=== PATIENT | male | born 1960 | race Caucasian/White ===

== ENCOUNTER 2016-04-13 14:06 | Inpatient (IN) | payer OTHER ==
[~2016-04-13] VITALS: Ht 172.7 cm; Wt 58.0 kg
[~2016-04-13 14:06] MED LIST: ASPIRIN325 MG PO; DAILY MULTIPLE1 EAC1 PO; LIPITOR20 MG PO; NICODERM 7MG PAT1 EA TD; PRILOSEC40 MG PO; SYMBICORT 16010.2 GM INH; ZYRTEC10 MG PO
[2016-04-13 18:24] LABS: URINE BILIRUBIN NEGATIVE (NEGATIVE); URINE BLOOD TRACE (NEGATIVE); URINE GLUCOSE (UA) NORMAL (NORMAL); URINE KETONE NEGATIVE (NEGATIVE); URINE LEUKOCYTE ESTERASE NEGATIVE (NEGATIVE); URINE NITRATE NEGATIVE (NEGATIVE); URINE PROTEIN NEGATIVE (NEGATIVE); UROBILINOGEN NORMAL mg/dL (<1.0)
[2016-04-13 19:02] LABS: URINE BACTERIA TRACE (NONE SEEN); URINE SQUAMOUS EPITHELIAL CELL 0-10 /[HPF] (NONE SEEN); URINE WBC 0-5 /[HPF] (0-3)
[2016-04-14 06:20] LABS: HEMATOCRIT 24.9 % (40-51); MEAN CORPUSCULAR HEMOGLOBIN 29.7 pg (27.0-33.0); MEAN CORPUSCULAR HGB CONC 32.9 g/dL (32.0-36.0); MEAN CORPUSCULAR VOLUME 90.2 fL (79-92); MEAN PLATELET VOLUME 10.4 fl (7.5-11.5); RED BLOOD COUNT 2.76 x10_6/uL (4.6-6.1); RED CELL DISTRIBUTION WIDTH 14.6 % (11.6-14.4); WHITE BLOOD COUNT 5.3 x10_3/uL (4.2-9.1)
[2016-04-14 06:26] LABS: HEMOGLOBIN 8.2 g/dL (13.7-17.5)
[2016-04-14 06:33] LABS: BLOOD UREA NITROGEN 8 mg/dL (7-18); CALCIUM 8.6 mg/dL (8.7-10.7); CARBON DIOXIDE 30 mmol/L (21-32); CREATININE 0.5 mg/dL (0.6-1.3); GLUCOSE,RANDOM 110 mg/dL (70-99); POTASSIUM 3.7 mmol/L (3.5-5.1); SODIUM 144 mmol/L (136-145)
[2016-04-15 06:47] LABS: HEMATOCRIT 23.7 % (40-51); MEAN CORPUSCULAR HGB CONC 32.5 g/dL (32.0-36.0); MEAN CORPUSCULAR VOLUME 92.2 fL (79-92); MEAN PLATELET VOLUME 10.9 fl (7.5-11.5); RED BLOOD COUNT 2.57 x10_6/uL (4.6-6.1); RED CELL DISTRIBUTION WIDTH 14.8 % (11.6-14.4); WHITE BLOOD COUNT 5.5 x10_3/uL (4.2-9.1)
[2016-04-15 06:56] LABS: HEMOGLOBIN 7.7 g/dL (13.7-17.5); MEAN CORPUSCULAR HEMOGLOBIN 29.9 pg (27.0-33.0)
[2016-04-15 06:57] LABS: BLOOD UREA NITROGEN 14 mg/dL (7-18); CALCIUM 8.7 mg/dL (8.7-10.7); CARBON DIOXIDE 29 mmol/L (21-32); GLUCOSE,RANDOM 116 mg/dL (70-99); POTASSIUM 3.7 mmol/L (3.5-5.1); SODIUM 143 mmol/L (136-145)
[2016-04-15 08:39] LABS: HEMATOCRIT 25.3 % (40-51); HEMOGLOBIN 8.3 g/dL (13.7-17.5)
[2016-04-16 07:33] LABS: HEMATOCRIT 25.9 % (40-51); HEMOGLOBIN 8.5 g/dL (13.7-17.5); MEAN CORPUSCULAR HEMOGLOBIN 30.2 pg (27.0-33.0); MEAN CORPUSCULAR HGB CONC 32.8 g/dL (32.0-36.0); MEAN CORPUSCULAR VOLUME 92.2 fL (79-92); RED BLOOD COUNT 2.81 x10_6/uL (4.6-6.1); RED CELL DISTRIBUTION WIDTH 14.9 % (11.6-14.4); WHITE BLOOD COUNT 6.2 x10_3/uL (4.2-9.1)
[2016-04-19 07:44] LABS: BLOOD UREA NITROGEN 16 mg/dL (7-18); CARBON DIOXIDE 29 mmol/L (21-32); CREATININE 0.7 mg/dL (0.6-1.3); GLUCOSE,RANDOM 91 mg/dL (70-99); HEMATOCRIT 27.8 % (40-51); HEMOGLOBIN 9.1 g/dL (13.7-17.5); MEAN CORPUSCULAR HEMOGLOBIN 30.6 pg (27.0-33.0); MEAN CORPUSCULAR HGB CONC 32.7 g/dL (32.0-36.0); MEAN CORPUSCULAR VOLUME 93.6 fL (79-92); MEAN PLATELET VOLUME 10.6 fl (7.5-11.5); POTASSIUM 3.9 mmol/L (3.5-5.1); RED BLOOD COUNT 2.97 x10_6/uL (4.6-6.1); RED CELL DISTRIBUTION WIDTH 16.1 % (11.6-14.4); SODIUM 140 mmol/L (136-145); WHITE BLOOD COUNT 5.4 x10_3/uL (4.2-9.1)
[2016-04-22 06:34] LABS: HEMOGLOBIN 9.2 g/dL (13.7-17.5); MEAN CORPUSCULAR HEMOGLOBIN 30.7 pg (27.0-33.0); MEAN CORPUSCULAR HGB CONC 31.7 g/dL (32.0-36.0); MEAN CORPUSCULAR VOLUME 96.7 fL (79-92); MEAN PLATELET VOLUME 10.1 fl (7.5-11.5)
[2016-04-22 06:50] LABS: BLOOD UREA NITROGEN 11 mg/dL (7-18); CALCIUM 8.7 mg/dL (8.7-10.7); CARBON DIOXIDE 29 mmol/L (21-32); CREATININE 0.6 mg/dL (0.6-1.3); GLUCOSE,RANDOM 84 mg/dL (70-99); POTASSIUM 3.8 mmol/L (3.5-5.1); SODIUM 144 mmol/L (136-145)
[2016-04-22 09:16] LABS: ALBUMIN 3.4 gm/dL (3.4-5.0); ALKALINE PHOSPHATASE 109 U/L (50-136); ALT/SGPT 15 U/L (7.53-40.17); AST/SGOT 22 U/L (6.66-35.34); BILIRUBIN,TOTAL 0.35 mg/dL (0.0-1.0); TOTAL PROTEIN 6.2 gm/dL (6.4-8.2)
[2016-04-22 09:53] LABS: BILIRUBIN,DIRECT < 0.20 mg/dL (0.0-0.30)
== END 2016-04-22 12:28 | disposition home or self-care (01) | DRG 560 ==
LOC: SWING 14:06
PROVIDERS: Family Medicine; ADMIT Family Medicine
DX: S72.102D Unspecified trochanteric fracture of left femur, subsequent encounter for closed fracture with routine healing (principal); D62 Acute posthemorrhagic anemia; B44.9 Aspergillosis, unspecified; Z98.890 Other specified postprocedural states; Z51.89 Encounter for other specified aftercare; J44.9 Chronic obstructive pulmonary disease, unspecified; I25.10 Atherosclerotic heart disease of native coronary artery without angina pectoris; I10 Essential (primary) hypertension; S02.2XXD Fracture of nasal bones, subsequent encounter for fracture with routine healing; S22.39XD Fracture of one rib, unspecified side, subsequent encounter for fracture with routine healing; R91.1 Solitary pulmonary nodule; G62.9 Polyneuropathy, unspecified; R11.0 Nausea; Z88.8 Allergy status to other drugs, medicaments and biological substances; Z88.1 Allergy status to other antibiotic agents; Z91.041 Radiographic dye allergy status; Z79.899 Other long term (current) drug therapy; Z79.1 Long term (current) use of non-steroidal anti-inflammatories (NSAID)
CPT/HCPCS: 36415; 80048; 80076; 81001; 85014; 87070; 94640; 94664; 97110; 97116; 97530; 99070

== ENCOUNTER 2016-11-02 17:24 | Emergency (ER) | payer OTHER | END 2016-11-02 21:40 | disposition home or self-care (01) | LOC: ER 17:24 | DX: J06.9 Acute upper respiratory infection, unspecified (principal); R05 Cough; I51.9 Heart disease, unspecified; Z95.0 Presence of cardiac pacemaker | CPT/HCPCS: 71020; 93005; 96372; 99283-25 ==